=== PATIENT | female | born 1970 | race Caucasian/White ===

== ENCOUNTER 2023-07-18 10:40 | Emergency (ER) | payer BC ==
[2023-07-18 11:31] LABS: BASOPHILS PERCENT AUTO 0.4 % (0.2-1.2); EOSINOPHILS ABSOLUTE AUTO 0.2 x10^3/uL (0.0-0.5); EOSINOPHILS PERCENT AUTO 1.9 % (0.0-4.0); HEMATOCRIT 42.1 % (33.0-47.0); HEMOGLOBIN 14.3 g/dL (12.0-16.0); IMMATURE GRAN ABSOLUTE AUTO 0.02 x10^3/uL (0.00-0.07); LYMPHOCYTES ABSOLUTE AUTO 2.7 x10^3/uL (1.0-4.8); MEAN CORPUSCULAR HEMOGLOBIN 29.1 pg (26.0-32.0); MEAN CORPUSCULAR VOLUME 85.6 fL (78.0-93.0); MONOCYTES ABSOLUTE AUTO 0.5 x10^3/uL (0.0-0.8); MONOCYTES PERCENT AUTO 5.5 % (2.0-11.0); NEUTROPHILS ABSOLUTE AUTO 5.2 x10^3/uL (1.8-7.7); PLATELET COUNT,PLT 349 x10^3/uL (130-400); RED BLOOD CELL COUNT 4.92 x10^6/uL (4.00-5.50); WHITE BLOOD CELL COUNT,WBC 8.6 x10^3/uL (4.0-10.0)
[2023-07-18] MEDS: Meclizine 25 MG Tab PO ONE (11:50)
[2023-07-18] MEDS: Lactated Ringers 1,000 ML IV SCH (11:50)
[2023-07-18 11:55] LABS: BLOOD UREA NITROGEN,BUN 12 mg/dL (7-18); CALCIUM 9.3 mg/dL (8.5-10.1); CARBON DIOXIDE,CO2 25 mmol/L (21-32); CHLORIDE,CL 106 mmol/L (98-107); CREATININE 0.7 mg/dL (0.55-1.02); GLUCOSE RANDOM 103 mg/dL (70-99); POTASSIUM,K 3.8 mmol/L (3.5-5.1); SODIUM,NA 138 mmol/L (136-145)
[2023-07-18 12:02] LABS: A/G RATIO 1.14; ALANINE AMINOTRANSFERASE,ALT 37 U/L (14-59); ALKALINE PHOSPHATASE 105 U/L (46-116); ASPARTATE AMNIOTRANSFERASE,AST 29 U/L (15-37); BILIRUBIN TOTAL 0.5 mg/dL (0.2-1.0); PROTEIN TOTAL,TP 7.5 g/dL (6.4-8.2)
[2023-07-18 12:03] LABS: ANION GAP 10.8 mmol/L (5-15); ESTIMATED GFR 104 mL/min (>=60)
[2023-07-18] MEDS: Iopamidol 755 Mg/ML 100 ML Bottle IVPUSH ONE (14:03)
== END 2023-07-18 15:13 | disposition home or self-care (01) ==
LOC: VM.ED 10:40
DX: R42 Dizziness and giddiness (principal); R55 Syncope and collapse; R20.2 Paresthesia of skin; F17.210 Nicotine dependence, cigarettes, uncomplicated; Z88.5 Allergy status to narcotic agent; Z88.8 Allergy status to other drugs, medicaments and biological substances; Z79.899 Other long term (current) drug therapy
CPT/HCPCS: 36415; 70450; 70496; 71045; 80048; 80076; 84484; 85025; 93005; 96360; 99284-25; A9270-GY; J7120; Q9967

== ENCOUNTER 2025-01-02 09:44 | Emergency (ER) | payer BC ==
[2025-01-02 10:10] LABS: BASOPHILS ABSOLUTE AUTO 0.1 x10^3/uL (0.0-0.2); BASOPHILS PERCENT AUTO 0.7 % (0.2-1.2); EOSINOPHILS ABSOLUTE AUTO 0.2 x10^3/uL (0.0-0.5); EOSINOPHILS PERCENT AUTO 2.4 % (0.0-4.0); IMMATURE GRAN ABSOLUTE AUTO 0.01 x10^3/uL (0.00-0.07); IMMATURE GRAN PERCENT AUTO 0.10 % (0.00-0.43); LYMPHOCYTES ABSOLUTE AUTO 2.2 x10^3/uL (1.0-4.8); LYMPHOCYTES PERCENT AUTO 29.4 % (25.0-50.0); MONOCYTES ABSOLUTE AUTO 0.5 x10^3/uL (0.0-0.8); MONOCYTES PERCENT AUTO 6.2 % (2.0-11.0); NEUTROPHILS ABSOLUTE AUTO 4.6 x10^3/uL (1.8-7.7); NEUTROPHILS PERCENT AUTO 61.2 % (50.0-80.0); PLATELET COUNT,PLT 331 x10^3/uL (130-400); RED BLOOD CELL COUNT 4.80 x10^6/uL (4.00-5.50); WHITE BLOOD CELL COUNT,WBC 7.6 x10^3/uL (4.0-10.0)
[2025-01-02 10:29] LABS: A/G RATIO 1.09; ALANINE AMINOTRANSFERASE,ALT 27.0 U/L (14-59); ASPARTATE AMNIOTRANSFERASE,AST 16.0 U/L (15-37); BILIRUBIN TOTAL 0.4 mg/dL (0.2-1.0); BLOOD UREA NITROGEN,BUN 10.0 mg/dL (7-18); CARBON DIOXIDE,CO2 26.0 mmol/L (21-32); CHLORIDE,CL 108.0 mmol/L (98-107); CREATININE 0.7 mg/dL (0.55-1.02); EST CRCL DRUG DOSING (CG) 79.34 mL/min; GLUCOSE RANDOM 91.0 mg/dL (70-99); POTASSIUM,K 3.6 mmol/L (3.5-5.1); PROTEIN TOTAL,TP 7.1 g/dL (6.4-8.2); SODIUM,NA 142.0 mmol/L (136-145)
[2025-01-02 10:30] LABS: ESTIMATED GFR 103.0 mL/min (>=60)
== END 2025-01-02 11:22 | disposition home or self-care (01) ==
LOC: VM.ED 09:44
DX: R07.89 Other chest pain (principal); Z88.5 Allergy status to narcotic agent; Z88.8 Allergy status to other drugs, medicaments and biological substances; Z79.899 Other long term (current) drug therapy
CPT/HCPCS: 71045; 80053; 84484; 85025; 93005; 99285